=== PATIENT | female | born 1955 | race Caucasian/White ===

== ENCOUNTER 2018-06-29 05:28 | Outpatient (CLI) | payer BC ==
[~2018-06-29] VITALS: Ht 152.4 cm; Wt 59.0 kg
[2018-06-29] MEDS ORDERED: SIMV80TA5 PO (12:48)
[2018-06-29] MEDS ORDERED: TOPI50TA13 PO (12:48)
[2018-06-29] MEDS ORDERED: LISI1TAB10 PO (12:48)
== END 2018-06-29 12:51 | disposition home or self-care (01) ==
LOC: PREOP 05:28
PROVIDERS: ATTEND Specialist
DX: Z01.818 Encounter for other preprocedural examination (principal)

== ENCOUNTER 2018-06-30 08:01 | Day surgery (SDC) | payer BC ==
[~2018-06-30] VITALS: Ht 152.4 cm; Wt 59.0 kg
[~2018-06-30 08:01] MED LIST: LISI1TAB10 PO; SIMV80TA5 PO; TOPI50TA13 PO
[2018-06-30 08:05] VITALS: BP 89/58
[2018-06-30] MEDS ORDERED: TIMOLOL MALEATE 0.5% 5 ML (TIMOPTIC) BTL OU PRN (08:15)
[2018-06-30] MEDS ORDERED: MOXIFLOXACIN OPHTH SOLN 5 MG/ML 0.3 ML SYRINGE OP ONE (08:15)
[2018-06-30] MEDS ORDERED: LIDOCAINE PF 1% 2 ML AMP IR PRN (08:15)
[2018-06-30] MEDS ORDERED: POVIDONE (BETADINE) OPHTH SOLN 5% 30 ML OP ONE (08:15)
[2018-06-30] MEDS: TETRACAINE 0.5% OPHTH SOLN 4 ML BTL (SINGLE DOSE ONLY) OU PRN ×4 (08:27→08:37)
[2018-06-30] MEDS: CYCLOPENTOLATE 1% (CYCLOGYL) 2 ML DROPS OP SCH ×3 (08:31→08:37)
[2018-06-30] MEDS: PHENYLEPHRINE 10% OPHTH (NEO-SYN) 5 ML BTL OU SCH ×3 (08:31→08:37)
--- OUTSIDE RECORDS SUMMARY | 2018-06-30 09:00 | XMS REPORT ---
Author Author URBANO SULLIVAN [facility] Address [address] [place], [place] [id number] Care Team Providers Care Weaver Dobby Loom Name Role Phone URBANO SULLIVAN PCP Unavailable Allergies and Adverse Reactions Name Reaction Notes PENICILLINS Plan of Treatment Planned Activity Comments Planned Date Planned Time Plan/Goal CT BONE DENSITY AXIAL 10/19/2013 12:00 AM Medications Active Name Start Date Estimated Completion Date SIG Comments Reclipsen (28) 0.15-0.03 mg oral tablet 06/20/2013 TAKE ONE TABLET BY MOUTH EVERY DAY Reclipsen (28) 0.15-0.03 mg oral tablet 09/14/2013 TAKE ONE TABLET BY MOUTH EVERY DAY simvastatin 80 mg oral tablet 11/14/2013 TAKE ONE TABLET BY MOUTH EVERY DAY lisinopril-hydrochlorothiazide 20-25 mg oral tablet 11/14/2013 TAKE ONE TABLET BY MOUTH EVERY DAY lisinopril-hydrochlorothiazide 20-25 mg oral tablet 12/09/2013 TAKE ONE TABLET BY MOUTH EVERY DAY simvastatin 80 mg oral tablet 12/09/2013 TAKE ONE TABLET BY MOUTH EVERY DAY lisinopril-hydrochlorothiazide 20-25 mg oral tablet 08/31/2014 TAKE ONE TABLET BY MOUTH EVERY DAY simvastatin 80 mg oral tablet 08/31/2014 TAKE ONE TABLET BY MOUTH EVERY DAY simvastatin 80 mg oral tablet 10/02/2014 TAKE ONE TABLET BY MOUTH EVERY DAY lisinopril-hydrochlorothiazide 20-25 mg oral tablet 11/27/2014 TAKE ONE TABLET BY MOUTH ONCE DAILY simvastatin 80 mg oral tablet 02/21/2015 TAKE ONE TABLET BY MOUTH ONCE DAILY lisinopril-hydrochlorothiazide 20-25 mg oral tablet 03/19/2015 TAKE ONE TABLET BY MOUTH ONCE DAILY. Name Start Date Expiration Date SIG Comments Cryselle (28) 0.3-30 mg-mcg oral tablet 07/15/2011 08/12/2011 TAKE ONE TABLET BY MOUTH EVERY DAY Reclipsen (28) 0.15-0.03 mg oral tablet 01/24/2013 02/21/2013 TAKE ONE TABLET BY MOUTH EVERY DAY lisinopril-hydrochlorothiazide 20-25 mg oral tablet 05/11/2013 06/10/2013 TAKE ONE TABLET BY MOUTH EVERY DAY simvastatin 80 mg oral tablet 05/11/2013 06/10/2013 TAKE ONE TABLET BY MOUTH EVERY DAY cephalexin 500 mg oral tablet 09/19/2014 10/04/2014 one TID Discontinued Name Start Date Discontinued Date SIG Comments Sprintec (28) 0.25-35 mg-mcg oral tablet 01/12/2012 06/11/2012 take 1 tablet by oral route once daily deleted Reclipsen (28) 0.15-0.03 mg oral tablet 10/11/2013 10/19/2013 TAKE ONE TABLET BY MOUTH EVERY DAY Problem List Description Status Onset Hyperlipidemia Active Hypertension Active Last Mammogram Active 2007 Last Pap Active March Solar lentigo Active 05/07/2015 Vital Signs Date Time BP-Sys(mm[Hg] BP-Annemarie(mm[Hg]) HR(bpm) RR(rpm) Temp WT HT HC BMI BSA BMI Percentile O2 Sat(%) 05/02/2015 3:34:00 PM 128 mmHg 70 mmHg 72 bpm 16 rpm 97.7 F 145 lbs 60 in 28.32 kg/m2 1.67 m2 97 % 09/19/2014 2:36:00 PM 112 mmHg 72 mmHg 78 bpm 18 rpm 97.9 F 140.375 lbs 59 in 28.352 kg/m 1.6281 m 96 % 01/09/2014 9:38:00 AM 160 mmHg 90 mmHg 70 bpm 20 rpm 98.6 F 140 lbs 59 in 28.28 kg/m2 1.63 m2 98 % 10/19/2013 9:13:00 AM 122 mmHg 62 mmHg 74 bpm 16 rpm 97.9 F 140.312 lbs 59 in 28.3394 kg/m 1.6277 m 96 % 09/29/2012 9:36:00 AM 110 mmHg 60 mmHg 56 bpm 18 rpm 97.4 F 138 lbs 60 in 26.95 kg/m2 1.63 m2 99 % 06/05/2011 10:02:00 AM 118 mmHg 72 mmHg 72 bpm 135 lbs 60 in 26.3651 kg/m 1.6101 m 04/24/2010 2:12:00 PM 110 mmHg 62 mmHg 64 bpm 126 lbs 11/21/2009 8:49:00 AM 116 mmHg 76 mmHg 127 lbs 08/27/2009 11:18:00 AM 144 mmHg 96 mmHg 76 bpm 128.375 lbs Social History Name Description Comments Tobacco Never smoker denies alcohol use History of Procedures Date Ordered Description Order Status 05/31/2012 12:00 AM FLU VACCINE 3 YRS & > IM Reviewed 05/31/2012 12:00 AM IMMUNIZATION ADMIN Reviewed 11/21/2009 12:00 AM ROUTINE VENIPUNCTURE Reviewed 11/21/2009 12:00 AM COMPLETE CBC W/AUTO DIFF WBC Reviewed 11/21/2009 12:00 AM COMPREHEN METABOLIC PANEL Reviewed 11/21/2009 12:00 AM LIPID PANEL Reviewed 06/08/2013 9:12 AM FLU VACCINE 3 YRS & > IM Reviewed 06/08/2013 9:12 AM IMMUNIZATION ADMIN Reviewed 10/19/2013 12:00 AM CYTOPATH TBS C/V MANUAL Reviewed 10/19/2013 12:00 AM SPECIMEN HANDLING OFFICE-LAB Reviewed 10/19/2013 12:00 AM MAMMOGRAM SCREENING Returned 10/19/2013 12:00 AM OCCULT BLOOD FECES Reviewed 10/19/2013 12:00 AM OCCULT BLD FECES 1-3 TESTS Reviewed 01/09/2014 12:00 AM THER/PROPH/DIAG INJ SC/IM Reviewed 01/09/2014 12:00 AM Toradol 60 Mg [facility]#8659-4170-18 Reviewed 01/09/2014 12:00 AM Phenergan, Up to 50 Mg [facility]#7116-9202-79 Reviewed Results Summary Data and Description Results 11/21/2009 4:31 PM TRIGLYCERIDES 53.0 mg/dLCHOLESTEROL 173.0 mg/dLHDL 62.0 mg/ dLLDL 88.0 mg/dLWBC 3.6 RBC 3.85 HGB 11.80 g/dLHCT 36.40 %MCV 95.0 fLMCH 30.60 pgMCHC 32.40 g/dLRDW CV 14.50 %MPV 13.10 fLPLT 178 %NEUT 56.60 %%LYMP 19.90 %% MONO 21.30 %%EOS 0.80 %%BASO 1.40 %#NEUT 2.04 #LYMP 0.72 #MONO 0.77 #EOS 0.03 # BASO 0.05 EOS 2.0 %GLUCOSE 80.0 mg/dLSODIUM 139.0 mmol/LPOTASSIUM 4.0 mmol/ LCHLORIDE 104.0 mmol/LCO2 27.0 mmol/LBUN 9.0 mg/dLCREATININE 0.80 mg/dLSGOT/AST 19.0 IU/LSGPT/ALT 12.0 IU/LALK PHOS 56.0 IU/LTOTAL PROTEIN 6.20 g/dLALBUMIN 3.80 g/dLTOTAL BILI 0.60 mg/dLCALCIUM 8.70 mg/dLeGFR >60 mL/min/1.73 m2WBC 3.6 # BASO 0.05 RBC 3.85 HGB 11.80 g/dLHCT 36.40 %MCV 95.0 fLMCH 30.60 pgMCHC 32.40 g/ dLRDW CV 14.50 %MPV 13.10 fLPLT 178 %NEUT 56.60 %%LYMP 19.90 %%MONO 21.30 %%EOS 0.80 %%BASO 1.40 %#NEUT 2.04 #LYMP 0.72 #MONO 0.77 #EOS 0.03 History Of Immunizations Name Date Admin Mfg Name Mfg Code Trade Name Lot# Route Inj Vis Given Vis Pub CVX Influenza 05/31/2012 [facility] PMC Fluzone [id number] Intramuscular Right Deltoid 05/31/2012 01/26/2012 141 Influenza 06/08/2013 [facility] PMC Fluzone [id number] Intramuscular Left Deltoid 06/08/2013 02/18/2013 141 History of Past Illness Name Date of Onset Comments Essential Hypertension Aug 27 2009 11:21AM Hyperlipidemia, unspecified Aug 27 2009 11:21AM Hyperlipidemia Hypertension Last Mammogram 2007 Last Pap March Hypertension Nov 21 2009 8:50AM Hyperlipidemia Nov 21 2009 8:50AM Essential Hypertension Apr 24 2010 2:14PM Hyperlipidemia, unspecified Apr 24 2010 2:14PM Routine gynecological examination Apr 24 2010 2:14PM Solar lentigo 05/07/2015 Routine gynecological examination Jun 05 2011 9:58AM Flu May 31 2012 12:02PM Essential Hypertension Sep 29 2012 9:37AM Flu Jun 08 2013 9:12AM Screening for Colon Cancer Oct 19 2013 9:13AM Pap Smear Oct 19 2013 9:13AM General Medical Exam, Adult Oct 19 2013 9:13AM Routine gynecological examination Oct 19 2013 9:13AM Migraine Jan 09 2014 9:39AM Mastitis Sep 19 2014 2:38PM Solar lentigo May 02 2015 3:34PM Payers Insurance Name Company Name Plan Name Plan Number Policy Number Policy Group Number Start Date Bcbs Bcbs [facility] [id number] N/A Bcbs Bc[facility] [id number] N/A History of Encounters Visit Date Visit Type Provider 05/02/2015 Office visit URBANO HAIRSTON 09/19/2014 Office visit URBANO HAIRSTON 01/09/2014 Office visit URBANO HAIRSTON 10/19/2013 Office visit URBANO HAIRSTON 06/08/2013 Office visit URBANO HAIRSTON 09/29/2012 Office visit URBANO HAIRSTON 05/31/2012 Office visit URBANO HAIRSTON 06/05/2011 Office visit URBANO HAIRSTON 04/24/2010 Office visit Urbano Sullivan PA-C 11/21/2009 Laboratory Urbano Sullivan PA-C 08/27/2009 Office visit Urbano Sullivan PA-C
--- OUTSIDE RECORDS SUMMARY | 2018-06-30 09:00 | XMS REPORT ---
Author Author URBANO SULLIVAN [facility] Address [address] [place], [place] [id number] Care Team Providers Care Refrigerator Tester Name Role Phone URBANO SULLIVAN PCP Unavailable [...] TAKE ONE TABLET BY MOUTH ONCE DAILY terbinafine HCl 250 mg oral tablet 08/13/2015 take 1 tablet (250 mg) by oral route twice daily for 7 days then off for 21 days then repeat lisinopril-hydrochlorothiazide 20-25 mg oral tablet 11/16/2015 TAKE ONE TABLET BY MOUTH ONCE DAILY. lisinopril-hydrochlorothiazide 20-25 mg oral tablet 01/21/2016 TAKE ONE TABLET BY MOUTH ONCE DAILY. lisinopril-hydrochlorothiazide 20-25 mg oral tablet 02/21/2016 TAKE ONE TABLET BY MOUTH ONCE DAILY. simvastatin 80 mg oral tablet 02/25/2016 TAKE ONE TABLET BY MOUTH ONCE DAILY simvastatin 80 mg oral tablet 03/25/2016 TAKE ONE TABLET BY MOUTH ONCE DAILY lisinopril-hydrochlorothiazide 20-25 mg oral tablet 03/25/2016 TAKE ONE TABLET BY MOUTH ONCE DAILY. [...] mg oral tablet 09/19/2014 10/04/2014 one TID Bactrim DS 800-160 mg oral tablet 08/08/2015 08/18/2015 take 1 tablet by oral route every 12 hours for 10 days Discontinued Name Start Date Discontinued Date SIG Comments Sprintec (28) 0.25-35 mg-mcg oral tablet 01/12/2012 06/11/2012 take 1 tablet by oral route once daily deleted Reclipsen (28) 0.15-0.03 mg oral tablet 10/11/2013 10/19/2013 TAKE ONE TABLET BY MOUTH EVERY DAY Problem List Description Status Onset Hyperlipidemia Active Hypertension Active Last Mammogram Active 2007 Last Pap Active March Solar lentigo Active 05/07/2015 Toenail fungus Active 08/21/2015 Vital Signs Date Time BP-Sys(mm[Hg] BP-Annemarie(mm[Hg]) HR(bpm) RR(rpm) Temp WT HT HC BMI BSA BMI Percentile O2 Sat(%) 08/13/2015 10:21:00 AM 120 mmHg 70 mmHg 78 bpm 18 rpm 97.6 F 145 lbs 60 in 28.32 kg/m2 1.67 m2 98 % 05/02/2015 3:34:00 PM 128 mmHg 70 mmHg 72 bpm 16 rpm 97.7 F 145 lbs 60 in 28.3181 kg/m 1.6686 m 97 % 09/19/2014 2:36:00 PM 112 mmHg 72 mmHg 78 bpm 18 rpm 97.9 F 140.375 lbs 59 in 28.35 kg/m2 1.63 m2 96 % 01/09/2014 9:38:00 AM 160 mmHg 90 mmHg 70 bpm 20 rpm 98.6 F 140 lbs 59 in 28.2763 kg/m 1.6259 m 98 % 10/19/2013 9:13:00 AM 122 mmHg 62 mmHg 74 bpm 16 rpm 97.9 F 140.312 lbs 59 in 28.34 kg/m2 1.63 m2 96 % 09/29/2012 9:36:00 AM 110 mmHg 60 mmHg 56 bpm 18 rpm 97.4 F 138 lbs 60 in 26.951 kg/m 1.6279 m 99 % 06/05/2011 10:02:00 AM 118 mmHg 72 mmHg 72 bpm 135 lbs 60 in 26.37 kg/m2 1.61 m2 04/24/2010 2:12:00 PM 110 mmHg 62 mmHg [...] Reviewed 01/09/2014 12:00 AM Toradol 60 Mg [facility]#9572-4820-43 Reviewed 01/09/2014 12:00 AM Phenergan, Up to 50 Mg [facility]#2818-3407-02 Reviewed Results Summary Data and Description Results [...] Vis Given Vis Pub CVX Influenza 05/31/2012 sanofi pasteur [facility] Fluzone [id number] Intramuscular Right Deltoid 05/31/2012 01/26/2012 141 Influenza 06/08/2013 [facility] Fluzone [id number] Intramuscular Left Deltoid 06/08/2013 02/18/2013 141 History [...] Apr 24 2010 2:14PM Solar lentigo 05/07/2015 Toenail fungus 08/21/2015 Routine gynecological examination Jun 05 2011 9:58AM [...] 2:38PM Solar lentigo May 02 2015 3:34PM Moderate Chronic Toenail fungus Aug 13 2015 10:22AM Mild Acute Ingrown left big toenail Improving Aug 13 2015 10:22AM Hypertension Mar 11 2016 1:54PM Hyperlipidemia Mar 11 2016 1:54PM Payers Insurance Name Company Name Plan Name Plan Number Policy Number Policy Group Number Start Date BCBS Bcbs [facility] [id number] N/A BCBS Bcbs [facility] [id number] N/A History of Encounters Visit Date Visit Type Provider 08/13/2015 Office visit URBANO HAIRSTON 05/02/2015 Office visit URBANO HAIRSTON 09/19/2014 Office [...]
--- OUTSIDE RECORDS SUMMARY | 2018-06-30 09:01 | XMS REPORT ---
Author Author URBANO SULLIVAN [facility] Address [address] [place], [place] [address] Care Team Providers Care Street Cleaning Equipment Operator Name Role Phone URBANO SULLIVAN PCP Unavailable URBANO SULLIVAN PreferredProvider Unavailable Allergies and Adverse Reactions Name Reaction Notes PENICILLINS Plan of Treatment Planned Activity Comments Planned Date Planned Time Plan/Goal Bone Density 10/19/2013 12:00 AM Medications Active Name Start [...] ONCE DAILY lisinopril-hydrochlorothiazide 20-25 mg oral tablet 11/16/2015 TAKE [...] ONCE DAILY. simvastatin 80 mg oral tablet 04/25/2016 TAKE ONE TABLET BY MOUTH ONCE DAILY lisinopril-hydrochlorothiazide 20-25 mg oral tablet 04/25/2016 TAKE ONE TABLET BY MOUTH ONCE DAILY. simvastatin 80 mg oral tablet 09/19/2016 03/18/2017 TAKE ONE TABLET BY MOUTH EVERY DAY lisinopril-hydrochlorothiazide 20-25 mg oral tablet 09/19/2016 03/18/2017 TAKE ONE TABLET BY MOUTH EVERY DAY lisinopril-hydrochlorothiazide 20-25 mg oral tablet 09/19/2016 TAKE ONE TABLET BY MOUTH ONCE DAILY simvastatin 80 mg oral tablet 09/19/2016 TAKE ONE TABLET BY MOUTH ONCE DAILY terbinafine HCl 250 mg oral tablet 01/19/2017 take 1 tablet (250 mg) by oral route twice daily for 7 days then off for 21 days then repeat Name Start Date Expiration Date SIG Comments [...] HC BMI BSA BMI Percentile O2 Sat(%) 01/19/2017 9:53:00 AM 98 mmHg 64 mmHg 70 bpm 18 rpm 98.4 F 143 lbs 60 in 27.93 kg/m2 1.66 m2 98 % 07/25/2016 10:30:00 AM 102 mmHg 60 mmHg 70 bpm 16 rpm 97 F 145 lbs 64 in 24.8889 kg/m 1.7234 m 96 % 08/13/2015 10:21:00 AM 120 mmHg 70 mmHg [...] of Procedures Date Ordered Description Order Status 06/06/2016 12:00 AM IMMUNIZATION ADMIN Reviewed 06/06/2016 12:00 AM FLU VACC 4 NUZHAT 3 YRS PLUS IM Reviewed 07/25/2016 12:00 AM Decadron 8mg Injection Reviewed 07/25/2016 12:00 AM Depo-Medrol 80mg Injection Reviewed 07/25/2016 12:00 AM Toradol 60 Mg Injection Reviewed 07/25/2016 12:00 AM THER/PROPH/DIAG INJ SC/IM Reviewed 05/31/2012 12:00 AM FLU VACCINE 3 YRS [...] OFFICE-LAB Reviewed 10/19/2013 12:00 AM MAMMOGRAM SCREENING Reviewed 10/19/2013 12:00 AM OCCULT BLOOD FECES Reviewed 10/19/2013 12:00 AM OCCULT BLD FECES 1-3 TESTS Reviewed 01/09/2014 12:00 AM THER/PROPH/DIAG INJ SC/IM Reviewed 01/09/2014 12:00 AM Toradol [address] [facility]#2034-4475-20 Reviewed 01/09/2014 12:00 AM Phenergan, Up to [address] [facility]#8504-4441-52 Reviewed Results Summary Date and Description Results 11/21/2009 4:31 PM TRIGLYCERIDES 53.0 mg/dLCHOLESTEROL 173.0 mg/dLHDL 62.0 mg/ dLTOT CHOL/HDL 2.8 LDL 88.0 mg/dLWBC 3.6 RBC 3.85 HGB 11.80 g/dLHCT 36.40 %MCV 95.0 fLMCH 30.60 pgMCHC 32.40 g/dLRDW SD 50 RDW CV 14.50 %MPV 13.10 fLPLT 178 NRBC# 0.00 NRBC% 0.0 %NEUT 56.60 %%LYMP 19.90 %%MONO 21.30 %%EOS 0.80 %%BASO 1.40 %#NEUT 2.04 #LYMP 0.72 #MONO 0.77 #EOS 0.03 #BASO 0.05 MANUAL DIFF SEE BELOW SEGS 54 BANDS 14 LYMPHS 17 MONOS 13 EOS 2.0 %GLUCOSE 80.0 mg/dLSODIUM 139.0 mmol/LPOTASSIUM 4.0 mmol/LCHLORIDE 104.0 mmol/LCO2 27.0 mmol/LBUN 9.0 mg/ dLCREATININE 0.80 mg/dLSGOT/AST 19.0 IU/LSGPT/ALT 12.0 IU/LALK PHOS 56.0 IU/ LTOTAL PROTEIN 6.20 g/dLALBUMIN 3.80 g/dLTOTAL BILI 0.60 mg/dLCALCIUM 8.70 mg/ dLAGE 54 GFR NonAA 75 GFR AA 91 eGFR >60 mL/min/1.73 m2eGFR AA* >60 WBC 3.6 # BASO 0.05 MANUAL DIFF SEE BELOW RBC 3.85 HGB 11.80 g/dLHCT 36.40 %MCV 95.0 fLMCH 30.60 pgMCHC 32.40 g/dLRDW SD 50 RDW CV 14.50 %MPV 13.10 fLPLT 178 NRBC# 0.00 NRBC% 0.0 %NEUT 56.60 %%LYMP 19.90 %%MONO 21.30 %%EOS 0.80 %%BASO 1.40 %# NEUT 2.04 #LYMP 0.72 #MONO 0.77 #EOS 0.03 History Of Immunizations Name Date Admin Mfg Name Mfg Code Trade Name Lot# Route Inj Vis Given Vis Pub CVX Influenza 05/31/2012 [facility] PMC Fluzone [id number] Intramuscular Right Deltoid 05/31/2012 01/26/2012 141 Influenza 06/08/2013 [facility] PMC Fluzone [id number] Intramuscular Left Deltoid 06/08/2013 02/18/2013 141 Influenza 06/06/2016 [facility] PMC Fluzone [id number] Intramuscular Right Upper Arm 06/06/2016 03/14/2014 141 History of Past Illness Name Date [...] 2016 1:54PM Hyperlipidemia Mar 11 2016 1:54PM Flu Vaccine Jun 06 2016 10:42AM Acute pain of right shoulder Jul 25 2016 10:31AM Toenail fungus Jan 19 2017 9:54AM Payers Insurance Name Company Name Plan Name Plan Number Policy Number Policy Group Number Start Date [id number] BC[id number]/A History of Encounters Visit Date Visit Type Provider 01/19/2017 Office visit URBANO HAIRSTON 07/25/2016 Office visit URBANO HAIRSTON 05/26/2016 Office visit URBANO HAIRSTON 08/13/2015 Office visit URBANO HAIRSTON 05/02/2015 Office [...]
--- OUTSIDE RECORDS SUMMARY | 2018-06-30 09:01 | XMS REPORT ---
Author Author [facility] Organization [facility] Address [address] [place], [place] [id number] Care Team Providers Care Mobile Designer Name Role Phone PCP Unavailable Allergies and Adverse Reactions Name Reaction Notes PENICILLINS Plan of Treatment Planned Activity Comments Planned Date Planned Time Plan/Goal CT BONE DENSITY AXIAL 10/19/2013 12:00 AM Medications Active Name Start Date Estimated Completion Date SIG Comments Reclipsen (28) oral tablet 0.15-30 mg-mcg 06/20/2013 TAKE ONE TABLET BY MOUTH EVERY DAY Jim (28) oral tablet 0.15-30 mg-mcg 09/14/2013 TAKE ONE TABLET BY MOUTH EVERY DAY simvastatin oral tablet 80 mg 11/14/2013 TAKE ONE TABLET BY MOUTH EVERY DAY lisinopril-hydrochlorothiazide oral tablet 20-25 mg 11/14/2013 TAKE ONE TABLET BY MOUTH EVERY DAY lisinopril-hydrochlorothiazide oral tablet 20-25 mg 12/09/2013 TAKE ONE TABLET BY MOUTH EVERY DAY simvastatin oral tablet 80 mg 12/09/2013 TAKE ONE TABLET BY MOUTH EVERY DAY lisinopril-hydrochlorothiazide oral tablet 20-25 mg 08/31/2014 TAKE ONE TABLET BY MOUTH EVERY DAY simvastatin oral tablet 80 mg 08/31/2014 TAKE ONE TABLET BY MOUTH EVERY DAY simvastatin oral tablet 80 mg 10/02/2014 TAKE ONE TABLET BY MOUTH EVERY DAY lisinopril-hydrochlorothiazide oral tablet 20-25 mg 11/27/2014 TAKE ONE TABLET BY MOUTH ONCE DAILY Name Start Date Expiration Date SIG Comments Charla (28) Oral Tablet 0.3-30 mg-mcg 07/15/2011 08/12/2011 TAKE ONE TABLET BY MOUTH EVERY DAY Reclipsen (28) Oral tablet 0.15-30 mg-mcg 01/24/2013 02/21/2013 TAKE ONE TABLET BY MOUTH EVERY DAY lisinopril-hydrochlorothiazide oral tablet 20-25 mg 05/11/2013 06/10/2013 TAKE ONE TABLET BY MOUTH EVERY DAY simvastatin oral tablet 80 mg 05/11/2013 06/10/2013 TAKE ONE TABLET BY MOUTH EVERY DAY cephalexin oral tablet 500 mg 09/19/2014 10/04/2014 one TID Discontinued Name Start Date Discontinued Date SIG Comments Sprintec (28) Oral Tablet 0.25-35 mg-mcg 01/12/2012 06/11/2012 take 1 tablet by oral route once daily deleted Reclipsen (28) oral tablet 0.15-30 mg-mcg 10/11/2013 10/19/2013 TAKE ONE TABLET BY MOUTH EVERY DAY Problem List Description Status Onset Hyperlipidemia Active Hypertension Active Last Mammogram Active 2007 Last Pap Active March Vital Signs Date Time BP-Sys(mm[Hg] BP-Annemarie(mm[Hg]) HR(bpm) RR(rpm) Temp WT HT HC BMI BSA BMI Percentile O2 Sat(%) 09/19/2014 2:36:00 PM 112 mmHg 72 mmHg [...] 01/09/2014 12:00 AM THER/PROPH/DIAG INJ SC/IM Reviewed Results Summary Data and Description Results [...] Vis Pub CVX Influenza 05/31/2012 sanofi pasteur PMC Fluzone [id number] Intramuscular Right Deltoid 05/31/2012 01/26/2012 141 Influenza 06/08/2013 sanofi pasteur PMC Fluzone [id number] Intramuscular Left Deltoid 06/08/2013 02/18/2013 141 History [...] Routine gynecological examination Apr 24 2010 2:14PM Routine gynecological examination Jun 05 2011 9:58AM Flu May 31 2012 12:02PM Essential Hypertension Sep 29 2012 9:37AM Flu Jun 08 2013 9:12AM Screening for Colon Cancer Oct 19 2013 9:13AM Pap Smear Oct 19 2013 9:13AM General Medical Exam, Adult Oct 19 2013 9:13AM Routine gynecological examination Oct 19 2013 9:13AM Migraine Jan 09 2014 9:39AM Mastitis Sep 19 2014 2:38PM Payers Insurance Name Company Name Plan Name Plan Number Policy Number Policy Group Number Start Date Bcbs Bcbs [facility] [id number] N/A Bcbs Bc[facility] [id number] N/A History of Encounters Visit Date Visit Type Provider 09/19/2014 Office visit URBANO HAIRSTON 01/09/2014 Office visit URBANO HAIRSTON 10/19/2013 Office visit URBANO HAIRSTON 06/08/2013 Office visit URBANO HAIRSTON 09/29/2012 Office visit URBANO HAIRSTON 05/31/2012 Office visit URBANO HAIRSTON 06/05/2011 Office visit URBANO HAIRSTON 04/24/2010 Office visit Urbano Sullivan PA-C 11/21/2009 Laboratory Urbano Sullivan PA-C 08/27/2009 Office visit Urbano Sullivan PA-C
--- OUTSIDE RECORDS SUMMARY | 2018-06-30 09:01 | XMS REPORT ---
Author Author URBANO SULLIVAN [facility] Address [address] [place], [place] [phone] Care Team Providers Care Drum Maker Name Role Phone URBANO SULLIVAN PCP Unavailable Allergies and Adverse Reactions Name Reaction Notes PENICILLINS Plan of Treatment Planned Activity Comments Planned Date Planned Time Plan/Goal Injection, Subcutaneous/IM 07/25/2016 12:00 AM Bone Density 10/19/2013 12:00 AM Medications Active [...] HC BMI BSA BMI Percentile O2 Sat(%) 07/25/2016 10:30:00 AM 102 mmHg 60 mmHg 70 bpm 16 rpm 97 F 145 lbs 64 in 24.89 kg/m2 1.72 m2 96 % 08/13/2015 10:21:00 AM 120 mmHg 70 mmHg 78 bpm 18 rpm 97.6 F 145 lbs 60 in 28.3181 kg/m 1.6686 m 98 % 05/02/2015 3:34:00 PM 128 mmHg [...] 4 NUZHAT 3 YRS PLUS IM Reviewed 05/31/2012 12:00 AM FLU VACCINE 3 [...] Reviewed 01/09/2014 12:00 AM Toradol 60 Mg [facility]#2116-9080-43 Reviewed 01/09/2014 12:00 AM Phenergan, Up to 50 Mg [facility]#8168-8404-05 Reviewed Results Summary Data and Description Results [...] Vis Given Vis Pub CVX Influenza 05/31/2012 [employer] PMC Fluzone [id number] Intramuscular Right Deltoid 05/31/2012 01/26/2012 141 [facility]08[facility] [id number] Intramuscular Left Deltoid 06/08/2013 02/18/2013 141 Influenza 06/06/2016 [facility] Fluzone [id number] Intramuscular Right Upper Arm 06/06/2016 03/14/2014 141 History of Past Illness Name Date of Onset Comments Essential Hypertension Aug 27 2009 11:21AM Hyperlipidemia, unspecified Aug 27 2009 11:21AM Hyperlipidemia Hypertension Last Mammogram 2008 Last Pap March Hypertension Nov 21 2009 [...] of right shoulder Jul 25 2016 10:31AM Payers Insurance Name Company Name Plan Name Plan Number Policy Number Policy Group Number [facility] Date [id number] N/A History of Encounters Visit Date Visit Type Provider 07/25/2016 Office visit URBANO HAIRSTON 05/26/2016 Office [...]
--- OUTSIDE RECORDS SUMMARY | 2018-06-30 09:02 | XMS REPORT ---
Author Author [facility] Organization [facility] Address [address] [place], [place] [id number] Care Team Providers Care Civil Structural Designer Name Role Phone PCP Unavailable Allergies [...] CVX Influenza 05/31/2012 sanofi pasteur PMC Fluzone [id number] Intramuscular Right Deltoid 05/31/2012 01/26/2012 141 Influenza 06/08/2013 sanofi pasteur PMC Fluzone [id number] Intramuscular Left Deltoid 06/08/2013 02/18/2013 141 History [...] Policy Group Number Start Date Bcbs Bcbs [facility] [id number] N/A Bcbs Bcbs [facility] [id number] N/A History of Encounters Visit Date Visit [...]
--- OUTSIDE RECORDS SUMMARY | 2018-06-30 09:02 | XMS REPORT ---
Author Author URBANO HUNTER [facility] Address [address] [place], [place] [id number] Care Team Providers Care Cardiology Clinical Nurse Specialist Name Role Phone URBANO HUNTER PCP Unavailable URBANO HUNTER PreferredProvider Unavailable Allergies and Adverse Reactions Name [...] ONCE DAILY. lisinopril-hydrochlorothiazide 20-25 mg oral tablet 09/19/2016 TAKE ONE TABLET BY MOUTH ONCE DAILY simvastatin 80 mg oral tablet 09/19/2016 TAKE ONE TABLET BY MOUTH ONCE DAILY terbinafine HCl 250 mg oral tablet 01/19/2017 take 1 tablet (250 mg) by oral route twice daily for 7 days then off for 21 days then repeat simvastatin 80 mg oral tablet 02/24/2017 TAKE ONE TABLET BY MOUTH ONCE DAILY lisinopril-hydrochlorothiazide 20-25 mg oral tablet 02/24/2017 TAKE ONE TABLET BY MOUTH ONCE DAILY citalopram 20 mg oral tablet 03/16/2017 06/14/2017 take 1 tablet (20 mg) by oral route once daily for 30 days topiramate 50 mg oral tablet 03/16/2017 06/14/2017 take 1 tablet by oral route HS Name Start Date Expiration Date SIG Comments [...] route every 12 hours for 10 days simvastatin 80 mg oral tablet 09/19/2016 03/18/2017 TAKE ONE TABLET BY MOUTH EVERY DAY lisinopril-hydrochlorothiazide 20-25 mg oral tablet 09/19/2016 03/18/2017 TAKE ONE TABLET BY MOUTH EVERY DAY Discontinued Name Start Date Discontinued Date SIG [...] lentigo Active 05/07/2015 Toenail fungus Active 08/21/2015 Hyperlipidemia, unspecified hyperlipidemia type Active 03/23/2017 Essential hypertension Active 03/23/2017 Intractable episodic tension-type headache Active 03/23/2017 Stress at work Active 03/23/2017 Vital Signs Date Time BP-Sys(mm[Hg] BP-Annemarie(mm[Hg]) HR(bpm) RR(rpm) Temp WT HT HC BMI BSA BMI Percentile O2 Sat(%) 03/16/2017 4:16:00 PM 125 mmHg 70 mmHg 88 bpm 16 rpm 98.2 F 152 lbs 60 in 29.69 kg/m2 1.71 m2 98 % 01/19/2017 9:53:00 AM 98 mmHg 64 mmHg 70 bpm 18 rpm 98.4 F 143 lbs 60 in 27.9275 kg/m 1.6571 m 98 % 07/25/2016 10:30:00 AM 102 mmHg [...] Reviewed 01/09/2014 12:00 AM Toradol 60 Mg [facility]#4447-6229-08 Reviewed 01/09/2014 12:00 AM Phenergan, Up to 50 Mg [facility]#2870-8404-55 Reviewed Results Summary Date and Description Results 11/21/2009 4:31 PM TRIGLYCERIDES 53.0 mg/dLCHOLESTEROL 173.0 mg/dLHDL 62.0 mg/ dLTOT CHOL/HDL 2.8 LDL 88.0 mg/dLGLUCOSE 80.0 mg/dLSODIUM 139.0 mmol/LPOTASSIUM 4.0 mmol/LCHLORIDE 104.0 mmol/LCO2 27.0 mmol/LBUN 9.0 mg/dLCREATININE 0.80 mg/ dLSGOT/AST 19.0 IU/LSGPT/ALT 12.0 IU/LALK PHOS 56.0 IU/LTOTAL PROTEIN 6.20 g/ dLALBUMIN 3.80 g/dLTOTAL BILI 0.60 mg/dLCALCIUM 8.70 mg/dLAGE 53 GFR NonAA 75 GFR AA 91 eGFR >60 mL/min/1.73 m2eGFR AA* >60 WBC 3.6 #BASO 0.05 MANUAL DIFF SEE BELOW RBC 3.85 HGB 11.80 g/dLHCT 36.40 %MCV 95.0 fLMCH 30.60 pgMCHC 32.40 g/ dLRDW SD 50 RDW CV 14.50 %MPV 13.10 fLPLT 178 NRBC# 0.00 NRBC% 0.0 %NEUT 56.60 % %LYMP 19.90 %%MONO 21.30 %%EOS 0.80 %%BASO 1.40 %#NEUT 2.04 #LYMP 0.72 #MONO 0.77 #EOS 0.03 History Of Immunizations Name Date Admin Mfg Name Mf Code Trade Name Lot# Route Inj Vis Given Vis Pub CVX Influenza 05/31/2012 sanofi pasteur PMC Fluzone [id number] Intramuscular Right Deltoid 05/31/2012 01/26/2012 141 Influenza 06/08/2013 [employer] pasteur PMC Fluzone [id number] Intramuscular Left Deltoid 06/08/2013 02/18/2013 141 Influenza 06/06/2016 sanofi pasteur PMC Fluzone [id number] Intramuscular Right Upper Arm 06/06/2016 03/14/2014 141 [...] 2:14PM Solar lentigo 05/07/2015 Toenail fungus 08/21/2015 Hyperlipidemia, unspecified hyperlipidemia type 03/23/2017 Essential hypertension 03/23/2017 Intractable episodic tension-type headache 03/23/2017 Stress at work 03/23/2017 Routine gynecological examination Jun 05 2011 9:58AM [...] 10:31AM Toenail fungus Jan 19 2017 9:54AM Intractable episodic tension-type headache Mar 16 2017 4:16PM Stress at work Mar 16 2017 4:16PM Hyperlipidemia, unspecified hyperlipidemia type Mar 16 2017 4:16PM Essential hypertension Mar 16 2017 4:16PM Payers Insurance Name Company Name Plan Name Plan Number Policy Number Policy Group Number Start Date BCBS [facility] [id number] N/A BCBS [facility] [id number] N/A History of Encounters Visit Date Visit Type Provider 03/16/2017 Office visit URBANO HAIRSTON 01/19/2017 Office visit URBANO HAIRSTON 07/25/2016 Office visit URBANO HAIRSTON 05/26/2016 Office visit URBANO HAIRSTON 08/13/2015 Office visit URBANO HAIRSTON 05/02/2015 Office visit URBANO HAIRSTON 09/19/2014 Office visit URBANO HAIRSTON 01/09/2014 Office visit URBANO HAIRSTON 10/19/2013 Office visit URBANO HAIRSTON 06/08/2013 Office visit URBANO HUNTER PA 09/29/2012 Office visit URBANO HUNTER PA 05/31/2012 Office visit URBANO HAIRSTON 06/05/2011 Office visit URBANO HUNTER PA 04/24/2010 Office visit Urbano DE LA ROSAC 11/21/2009 Laboratory Urbano DE LA ROSAC 08/27/2009 Office visit Urbano Hunter PA-C
--- OUTSIDE RECORDS SUMMARY | 2018-06-30 09:02 | XMS REPORT ---
Author Author URBANO SULLIVAN [facility] Address [address] [place], [place] [id number] Care Team Providers Care Sap Ppm Consultant Name Role Phone URBANO SULLIVAN PCP Unavailable [...] Reviewed 01/09/2014 12:00 AM Toradol 60 Mg [facility]#0522-8606-18 Reviewed 01/09/2014 12:00 AM Phenergan, Up to 50 Mg [facility]#7169-7065-76 Reviewed Results Summary Data and Description Results [...] CVX Influenza 05/31/2012 sanofi pasteur PMC Fluzone [id number] Intramuscular Right Deltoid 05/31/2012 01/26/2012 141 Influenza 06/08/2013 sanofi pasteur PMC Fluzone [id number] Intramuscular Left Deltoid 06/08/2013 02/18/2013 141 History [...] Policy Group Number Start Date BCBS Bcbs [facility] [id number] N/A BCBS [employer] [facility] [id number] N/A History of Encounters Visit Date Visit [...]
--- OUTSIDE RECORDS SUMMARY | 2018-06-30 09:03 | XMS REPORT ---
Author Author URBANO SULLIVAN [facility] Address [address] [place], [place] [id number] Care Team Providers Care Blade Balancer Name Role Phone URBANO SULLIVAN PCP Unavailable [...] ONCE DAILY lisinopril-hydrochlorothiazide 20-25 mg oral tablet 06/18/2015 TAKE ONE TABLET BY MOUTH ONCE DAILY. simvastatin 80 mg oral tablet 06/19/2015 TAKE ONE TABLET BY MOUTH ONCE DAILY terbinafine HCl 250 mg oral tablet 08/13/2015 take 1 tablet (250 mg) by oral route twice daily for 7 days then off for 21 days then repeat Name Start Date Expiration Date SIG Comments Charla (28) 0.3-30 mg-mcg oral tablet 07/15/2011 08/12/2011 [...] 12:00 AM Toradol [address] [facility]#7499-0509-82 Reviewed 01/09/2014 12:00 AM Phenergan, Up to [address] [facility]#9663-3308-09 Reviewed Results Summary Data and Description Results [...] Vis Given Vis Pub CVX Influenza 05/31/2012 [employer] [facility] PMC Fluzone [id number] Intramuscular Right Deltoid 05/31/2012 01/26/2012 141 Influenza 06/08/2013 sanofi [facility] PMC Fluzone [id number] Intramuscular Left Deltoid 06/08/2013 02/18/2013 141 History [...] big toenail Improving Aug 13 2015 10:22AM Payers Insurance Name Company Name Plan Name Plan Number Policy Number Policy Group Number Start Date [id number]A History of Encounters Visit Date [...]
--- OUTSIDE RECORDS SUMMARY | 2018-06-30 09:03 | XMS REPORT ---
Author Author URBANO SULLIVAN [facility] Address [address] [place], [place] [id number] Care Team Providers Care Geodetic Surveyor Name Role Phone URBANO SULLIVAN PCP Unavailable URBANO SULLIVAN PreferredProvider Unavailable Allergies and Adverse Reactions Name Reaction Notes PENICILLINS Plan of Treatment Planned Activity Comments Planned Date Planned Time Plan/Goal CBC with Auto 03/27/2017 12:00 AM Comprehensive metabolic panel 03/27/2017 12:00 AM Lipid with LDL 03/27/2017 12:00 AM Bone Density 10/19/2013 12:00 AM [...] 01/09/2014 12:00 AM Toradol 60 Mg [facility]#1832-4130-12 Reviewed 01/09/2014 12:00 AM Phenergan, Up to 50 Mg [facility]#8392-7738-21 Reviewed Results Summary Date and Description Results [...] CVX Influenza 05/31/2012 sanofi pasteur PMC Fluzone [id number] Intramuscular Right Deltoid 05/31/2012 01/26/2012 141 Influenza 06/08/2013 sanofi pasteur PMC Fluzone [id number] Intramuscular Left Deltoid 06/08/2013 02/18/2013 141 Influenza 06/06/2016 sanofi pasteur PMC Fluzone [id number] Intramuscular Right Upper Arm 06/06/2016 03/14/2014 141 History of Past Illness Name Date of Onset Comments Essential Hypertension Feb 1 2010 11:21AM Hyperlipidemia, unspecified Aug 27 2009 11:21AM [...] 4:16PM Essential hypertension Mar 16 2017 4:16PM Hypertension Mar 27 2017 6:50AM Hyperlipidemia Mar 27 2017 6:50AM Payers Insurance Name Company Name Plan Name Plan Number Policy Number Policy Group Number [facility] Date [id number] N/A BCBS Bcbs [facility] [id number] N/A History of Encounters Visit Date Visit Type Provider 03/16/2017 Office visit URBANO HAIRSTON 01/19/2017 Office visit URBANO HAIRSTON 07/25/2016 Office visit URBANO HAIRSTON 05/26/2016 Office visit URBANO HAIRSTON 08/13/2015 Office visit URBANO HAIRSTON 05/02/2015 Office visit URBANO SULLIVAN PA 09/19/2014 Office visit URBANO SULLIVAN PA 01/09/2014 Office visit URBANO SULLIVAN PA 10/19/2013 Office visit URBANO SULLIVAN PA 06/08/2013 Office visit URBANO SULLIVAN PA 09/29/2012 Office visit URBANO SULLIVAN PA 05/31/2012 Office visit URBANO SULLIVAN PA 06/05/2011 Office visit URBANO SULLIVAN PA 04/24/2010 Office visit Urbano Sullivan PA-C 11/21/2009 Laboratory Urbano Sullivan PA-C 08/27/2009 Office visit Urbano Sullivan PA-C
--- OUTSIDE RECORDS SUMMARY | 2018-06-30 09:04 | XMS REPORT | Continuity of Care Document ---
Author Author [facility] Organization [facility] Address Unknown Phone Unavailable Allergies There is no data. Medications There is no data. Problems There is no data. Procedures There is no data. Results There is no data. Encounters ACCT No. Visit Date/Time Discharge Status Pt. Type Provider Facility Loc./Unit Complaint [id number] 03/16/2017 14:37:07 03/16/2017 23:59:59 [facility] Outpatient QUINN HUNTER [id number] 01/19/2017 10:16:47 01/19/2017 23:59:59 [facility] Outpatient QUINN HUNTER [id number] 07/25/2016 10:49:21 07/25/2016 23:59:59 [facility] Outpatient QUINN HUNTER [id number] 05/26/2016 15:31:18 05/26/2016 23:59:59 [facility] Outpatient QUINN HUNTER [id number] 08/13/2015 10:45:13 08/13/2015 23:59:59 [facility] Outpatient QUINN HUNTER [id number] 01/09/2014 10:18:19 01/09/2014 23:59:59 [facility] Outpatient QUINN HUNTER [id number] 10/19/2013 09:48:11 10/19/2013 23:59:59 [facility] Outpatient QUINN HUNTER
--- OUTSIDE RECORDS SUMMARY | 2018-06-30 09:04 | XMS REPORT ---
Author Author URBANO SULLIVAN [facility] Address [address] [place], [place] [id number] Care Team Providers Care Electronic Tester Name Role Phone URBANO SULLIVAN PCP Unavailable Allergies and Adverse Reactions Name Reaction Notes PENICILLINS Plan of Treatment Planned Activity Comments Planned Date Planned Time Plan/Goal Injection Of Immunization, Initial 06/06/2016 12:00 AM Flu vaccine, 3yrs & older, Quadrivalent (multi-dose vial) 06/06/2016 12: 00 AM Bone Density 10/19/2013 12:00 AM Medications [...] Reviewed 01/09/2014 12:00 AM Toradol 60 Mg [facility]#1818-7724-91 Reviewed 01/09/2014 12:00 AM Phenergan, Up to 50 Mg [facility]#2472-7290-72 Reviewed Results Summary Data and Description Results [...] Vis Given Vis Pub CVX Influenza 05/31/2012 [facility] PMC Fluzone [id number] Intramuscular Right Deltoid 05/31/2012 01/26/2012 141 Influenza 06/08/2013 [facility] PMC Fluzone [id number] Intramuscular Left Deltoid 06/08/2013 02/18/2013 141 History [...] 1:54PM Flu Vaccine Jun 06 2016 10:42AM Payers Insurance Name Company Name Plan Name Plan Number Policy Number Policy Group Number [id number] History of Encounters Visit Date Visit Type Provider 05/26/2016 Office visit URBANO HAIRSTON 08/13/2015 Office [...] Laboratory Urbano Sullivan PA-C 08/27/2009 Office visit rUbano Sullivan PA-C
--- NOTE | 2018-06-30 09:19 | Ophthalmologist Pre-Op Note ---
Pre-Operative Progress Note H&P Reviewed The H&P was reviewed, patient examined and no changes noted. Date H&P Reviewed: Jun 30, 2018 Time H&P Reviewed: 09:19 Pre-Op Dx Cataract, Right Eye SCOT CRUMP MD Jun 30, 2018 09:19
[2018-06-30] MEDS ORDERED: MIDAZOLAM 2 MG/2 ML (VERSED) VIAL ONE (09:25)
[2018-06-30] MEDS ORDERED: acetaZOLAMIDE ER 500 MG CAP (DIAMOX SEQUELS) PO ONE (09:30)
--- NOTE | 2018-06-30 09:50 | Ophthalmology Operative Report ---
Cataract removal/placement IOL REOPERATIVE DIAGNOSIS: Cataract Right Eye POSTOPERATIVE DIAGNOSIS: Cataract Right Eye PROCEDURE: Cataract removal and placement of posterior chamber implant, right eye SURGEON: Cirilo Crump ANESTHESIA: Topical with sedation COMPLICATIONS: None ESTIMATED BLOOD LOSS: Minimal DESCRIPTION OF PROCEDURE: After proper informed consent was obtained, the patient, a 62 female, was taken to the Operating Room and the right eye was anesthetized with tetracaine. The right eye was then prepped and draped in the usual manner. A wire lid speculum was placed. A paracentesis was made at the left hand position. Preservative free lidocaine was injected into the anterior chamber followed by viscoelastic. A clear corneal incision was made in the temporal position. A capsulorrhexis was preformed and the central nuclear and cortical material were removed. The posterior capsule was polished and Fred 19.0 AU00T0 IOL was placed into the capsular bag. The residual viscoelastic was aspirated and balanced saline solution was injected into the anterior chamber. Moxifloxacin was injected into the anterior chamber. The wound was checked and found to be water tight. The patient tolerated the procedure well without complications. CIRILO CRUMP MD Jun 30, 2018 09:50
[2018-06-30 10:00] VITALS: BP 119/63
--- NOTE | 2018-06-30 12:26 | Anesthesia-General Post-Op ---
MAC Patient Condition Mental Status/LOC: Same as Preop Cardiovascular: Satisfactory Nausea/Vomiting: Absent Respiratory: Satisfactory Pain: Controlled Complications: Absent Post Op Complications Complications None Follow Up Care/Instructions Patient Instructions None needed. Anesthesiology Discharge Order Discharge Order Patient is doing well, no complaints, stable vital signs, no apparent adverse anesthesia problems. No complications reported per nursing. TANNER CORRAL CRNA Jun 30, 2018 12:26
== END 2018-06-30 10:00 | disposition home or self-care (01) ==
LOC: SDC 08:01
PROVIDERS: ATTEND Specialist
DX: H25.11 Age-related nuclear cataract, right eye (principal); I10 Essential (primary) hypertension; Z79.899 Other long term (current) drug therapy